=== PATIENT | female | born 1990 ===

== ENCOUNTER 2025-06-26 09:51 | Emergency (ER) | payer OTHER, SELFPAY ==
--- NOTE | ~2025-06-26 | XR_ITS ---
EXAMINATION: XR CHEST CLINICAL INFORMATION: chest pain COMPARISON: None available. TECHNIQUE: 2 views of the chest were obtained. FINDINGS: The cardiomediastinal silhouette is within normal limits. The lungs are well expanded. There is no focal consolidation, edema, or effusion. No pneumothorax. No acute osseous abnormality. XR/XR chest 2V IMPRESSION: No evidence of acute cardiopulmonary findings Electronically signed by: William Heredia MD 06/26/2025 11:24 AM [facility]
[2025-06-26 10:00] VITALS: BP 115/67; PULSE 86; RESP 18; TEMP 35.9; O2SAT 99; BMI 35.5
--- NOTE | 2025-06-26 10:01 | ED_ITS ---
HPI - General Adult General Chief complaint: General Medical Stated complaint: prolapsed organs, sent here from Time Seen by Provider: 06/26/25 10:10 Source: patient, RN notes reviewed and old records reviewed Mode of arrival: ambulatory Limitations: no limitations History of Present Illness ED Provider: Venecia garcia [facility] narrative: Patient is a 34-year-old female presenting to the emergency department with complaint of uterine prolapse for the past few days. States has history of the same, can usually correct herself at home. Referred to the ED from urgent care. Denies any vaginal bleeding or other abnormal discharge. Does report associated urinary incontinence which she states is typical for her with uterine prolapse. Denies dysuria or hematuria. Denies fevers. Reporting chest tightness for the past 2 weeks with lightheadedness as well. Denies cough, shortness of breath, palpitations. States that she recently moved here from [place]. She does not have care established with a cryogenics engineer here yet. She has been assigned a PCP by her insurance, but is unable to get an appointment until next year. complaint: uterine prolapse Related Data Allergies Allergy/AdvReac Type Severity Reaction Status Date / Time Fish Containing Products Allergy Hives Verified 06/26/25 10:01 shellfish derived (shellfish) Allergy Dizziness Verified 06/26/25 10:01 Review of Systems 2 Review of Systems: as per hpi Yes all other systems are reviewed and are negative Constitutional: Constitutional: Reports as per HPI [facility] Social History Social History Smoked in Last 30 Days: No Use of substances other than those prescribed or required for medical reasons: No Advance Directives: No Advance Directives Information Provided: No Physical Exam ED Vital Signs: Vital Signs - 24 hr 06/26/25 10:00 06/26/25 10:21 06/26/25 10:21 Temperature 96.6 F L Pulse Rate 86 79 Respiratory Rate 18 14 18 Blood Pressure 115/67 108/61 Pulse Oximetry 99 100 Oxygen Delivery Method Room Air Room Air BMI result Body Mass Index 35.5 Vital signs have been reviewed and appear to be correct. Blood pressure normal. Heart rate normal. Respiratory rate normal. Temperature normal. Oxygen saturation normal. Const General: cooperative, healthy appearing and no acute distress Orientation/consciousness: oriented to person, oriented to place, oriented to time and patient oriented x3 Limitations: no limitations HENMT Head: Yes normocephalic and Yes atraumatic Ears: external ears normal General nose exam: Normal external nose present Face and sinus: Yes face symmetric Mouth: oropharynx normal and moist mucous membranes Throat: Yes uvula midline Eyes Pupils: Equal, round and reactive pupils present Neck Neck: Yes normal visual inspection and Yes supple Resp Effort & Inspection: normal respiratory effort and able to speak in complete sentences Auscultation: clear to auscultation bilaterally Cardio Rate: regular rate Rhythm: regular rhythm Heart sounds: S1 normal heart sound present and S2 normal heart sound present GI Palpation (GI): Soft to palpation and nontender Auscultation: normoactive bowel sounds Other: pelvic exam chaperoned by ANDRÉS Dinh General: Yes no CVA tenderness Speculum Exam - Vagina: normal vaginal discharge Speculum Exam - Cervix: normal vervical discharge, nontender and Other cervical findings present (uterine prolapse into cervix but not extending to vagina/externally) Bimanual exam- vagina & uterus: No Cervical tenderness present Back/Spine/Pelvis Back: no CVA tenderness Skin General skin exam: elasticity normal and turgor normal Neuro General: oriented to person, oriented to place, oriented to time, patient oriented x3, moves all extremities, no focal motor deficits and CN's II-XI intact bilaterally Cranial nerves: Yes Equal, round and reactive pupils present Cognition (Neuro): normal cognition Extrem General: Yes full ROM, Yes no pedal edema and Yes no calf tenderness Psych Mental Status: mental status grossly normal Affect: normal affect Thought process: Normal thought process present Course Course Course Narrative: Rapid medical examination performed in triage by Tanya Hicks PA-C. Patient is a 34 year old assigned female at presenting to the emergency department with a bladder vs. uterine prolapse. Patient states that she tried to reduce it herself last night and was unsuccessful. Patient states that she is also dizzy with chest pain and had an EKG at urgent care that was OK but recommended she be checked out . Detailed physical exam and review of systems are deferred to the material planner. EKG + labs + imaging ordered. Patient placed back in the waiting room pending room availability and results. Medical Decision Making Medical Decision Making MDM Narrative: Patient is a 34-year-old female presenting to the emergency department with complaint of uterine prolapse for the past few days. On exam patient is awake, A+Ox3, VS WNL, afebrile, normal neurological exam without focal deficits, physical exam findings as above. Given reported symptoms and physical exam findings, initial differential includes but is not limited to uterine prolapse, UTI, viral illness, GERD/PUD, chest wall strain. Less likely ACS. EKG shows NSR with T wave inversion in leads avf, v1, v3. Labs unremarkable, negative troponin, normal BMP. X-ray chest notable for no evidence of pneumonia, pneumothorax. My interpretation is in agreement with the radiologist's interpretation. No external prolapse on physical exam. No evidence of infection on urinalysis. Feel patient is stable for discharge home at this time. Results discussed with patient and all questions answered. Will refer patient to photocomposing keyboard operator as well as Cardiology for further evaluation of her symptoms. Return precautions discussed. Patient verbalized understanding of and agreement with plan. Differential Diagnosis Differential Diagnoses: The differential diagnosis associated with the presentation includes as per [facility] Admission/Observation Consideration of admission/observation: Escalation of care including admission/observation considered Patient would have been admitted to the hospital and transferred to appropriate facility had their clinical presentation warranted hospital admission. Lab Data [facility] Lab Attestation statement: I reviewed the patient's lab results. as per [facility] 06/26/25 10:32 06/26/25 10:32 Labs: Lab Results 06/26/25 Range/Units 10:32 WBC 8.4 (4.8-10.8) X10*3/uL RBC 4.57 (4.20-5.50) X10*6/uL Hgb 13.2 (12.0-16.0) g/dl Hct 39.1 (37.0-47.0) % MCV 85.6 (80.0-98.0) fL MCH 28.9 (27.0-33.0) pg MCHC 33.8 (31.0-35.0) g/dl RDW 12.4 (11.0-16.0) % Plt Count 248 (160-400) X10*3/uL MPV 9.2 L (9.4-12.3) fL Immature Gran % (Auto) 0.2 (0.0-0.4) % Neut % (Auto) 69.7 (45-73) % Lymph % (Auto) 23.3 (20-40) % Harris % (Auto) 4.6 (2-11) % Eos % (Auto) 2.0 (0-4) % Baso % (Auto) 0.2 (0-2) % Lymph # (Auto) 2.0 (1.2-4.9) X10*3/uL Harris # (Auto) 0.4 (0.1-1.2) X10*3/uL Eos # (Auto) 0.2 (0.0-0.4) X10*3/uL Baso # (Auto) 0.0 (0.0-0.2) X10*3/uL Abs Immat Gran (auto) 0.02 (0.00-0.03) X10*3/uL Absolute Neuts (auto) 5.9 (2.0-8.3) x10*3/uL Absolute Nucleated RBC 0.000 (0.0-0.012) X10*3/uL Nucleated RBC % (auto) 0.0 (0.0-0.2) /100WBC Sodium 140 (135-145) mmol/L Potassium 3.6 (3.3-5.1) mmol/L Chloride 107 (96-108) mmol/L Carbon Dioxide 28 (22-29) mmol/L Anion Gap 9 L (12-20) BUN 9 (9-16) mg/dL Creatinine 0.65 (0.5-1.4) mg/dL Estim Creat Clear Calc 147.5 Estimated GFR > 60 Random Glucose 90 (60-115) mg/dL Calcium 8.9 (8.4-10.2) mg/dL Total Bilirubin 0.3 (0.0-1.0) mg/dL AST 19 (5-31) U/L ALT 16 (0-31) U/L Alkaline Phosphatase 63 (39-117) U/L Troponin I High Sens < 2.7 (<3.5-17.0) ng/L NT-Pro-B Natriuret Pep 64.3 (<300) pg/mL Total Protein 7.3 (6.5-8.0) g/dL Albumin 4.6 (3.5-5.0) g/dL Beta HCG, Quant < 2 mIU/mL Independent Interpretation I performed an independent interpretation of an: Plain X-Ray Interpretation: Chest x-ray is without evidence of pneumonia or pneumothorax. Radiology Impression Discussion of test interpretation with radiology: I have reviewed the radiologist's reading. Radiologist Impression: XR/XR chest 2V IMPRESSION: No evidence of acute cardiopulmonary findings External Record Review External record reviewed: Inpatient record, Office record and Outpatient record Discharge Plan Discharge Clinical Impression: Incomplete uterine prolapse, Atypical chest pain Patient Disposition: Home, Self-Care Instructions: Chest Pain (DC), Uterine Prolapse (ED) Additional Instructions: You were evaluated in the emergency department today for uterine prolapse. Your pelvic exam did not show evidence of external prolapse. Your urinalysis did not show evidence of infection. Your labs were reassuring. Your chest x-ray did not show evidence of pneumonia or other acute condition. You are being referred to an OBGYN as well as a slip mixer for further evaluation of your symptoms. You may need further work up such as ECHO, cardiac stress testing, coronary CT angiogram to assess your cardiac risk. Return to the emergency department with new or concerning symptoms. Please see list of OGBYN providers below if you do not have one: [facility] [address] [phone] [facility] [address] [facility] [address] [place] [address] [phone] O[facility]YN [facility] Midw[facility] [address] [phone] [facility] [phone] Referrals: [facility] [Provider Group] Referral Note: some T wave inversions on EKG Clinical Impression: Atypical chest pain Stand Alone Forms: Work/School Release Print Language: Haitian
--- NOTE | 2025-06-26 10:03 | ECG_ITS ---
Test Reason : CP Blood Pressure : */* mmHG Vent. Rate : 71 BPM Atrial Rate : 71 BPM P-R Int : 136 ms QRS Dur : 72 ms QT Int : 364 ms P-R-T Axes : 40 9 -4 degrees QTcB Int : 395 ms Normal sinus rhythm Nonspecific T wave abnormality Abnormal ECG No previous ECGs available Referred By: Tanya Hicks Electronically Signed By: Jorge Morrow
[2025-06-26 10:21] VITALS: BP 108/61; PULSE 79; RESP 14; RESP 18; O2SAT 100
[2025-06-26 10:36] LABS: MANUAL DIFF FLAG NO
[2025-06-26 10:37] LABS: Hematocrit 39.1 % (37.0-47.0); Hemoglobin 13.2 g/dl (12.0-16.0); Imm Gran Abs Auto 0.02 X10*3/uL (0.00-0.03); Imm Gran Pct Auto 0.2 % (0.0-0.4); Lymphocytes Absolute Auto 2.0 X10*3/uL (1.2-4.9); Mean Corpuscular HGB Conc 33.8 g/dl (31.0-35.0); Mean Corpuscular Hemoglobin 28.9 pg (27.0-33.0); Mean Corpuscular Volume 85.6 fL (80.0-98.0); NRBC Abs Auto 0.000 X10*3/uL (0.0-0.012); NRBC Pct Auto 0.0 /100WBC (0.0-0.2); Platelet Count 248 X10*3/uL (160-400); Red Blood Count 4.57 X10*6/uL (4.20-5.50); White Blood Count 8.4 X10*3/uL (4.8-10.8)
[2025-06-26 10:52] LABS: Alanine Aminotransferase 16 U/L (0-31); Albumin Level 4.6 g/dL (3.5-5.0); Alkaline Phosphatase 63 U/L (39-117); Anion Gap 9 (12-20); Aspartate Amino Transferase 19 U/L (5-31); Blood Urea Nitrogen 9 mg/dL (9-16); Calcium 8.9 mg/dL (8.4-10.2); Carbon Dioxide 28 mmol/L (22-29); Chloride 107 mmol/L (96-108); Creatinine Clr Calc Pharmacy 147.5; Estimated Glomerular Filt Rate > 60; Potassium 3.6 mmol/L (3.3-5.1); Sodium 140 mmol/L (135-145); Total Protein 7.3 g/dL (6.5-8.0)
[2025-06-26 10:59] LABS: NT Pro B Type Natriuretic Pept 64.3 pg/mL (<300)
[2025-06-26 11:04] LABS: Troponin-I High Sensitivity < 2.7 ng/L (<3.5-17.0)
--- NOTE | 2025-06-26 11:29 | PC.NURSE ---
This was triaged at 10am, brought into ED7, this RN was at bedside at 1030ish, tech doing EKG and placing on monitor at this time. This RN noted that EKG was ordered for CP at this time, this RN discussed with triaging RN/PA to determine if staff was made aware of EKG at that time. It was discovered that it was not verbalized that it was ordered as a CP EKG. This RN alerted WAREHOUSE ANALYST, labs sent and obtained at this time. Pt remains A'/Ox4, stable on RA. Pt is able to talk in full sentences at this time. Primary RN taking over for this RN is aware of situation at this time
[2025-06-26 12:06] LABS: Appearance Urine Clear; Glucose Urine UA Negative (Negative); PH 5.5 (5.0-9.0); Specific Gravity - Urine 1.020 (1.005-1.025); UMIC TRIGGER UACC YES
[2025-06-26 12:11] VITALS: BP 107/66; PULSE 74; RESP 13; TEMP 36.6; O2SAT 100
[2025-06-26 12:39] VITALS: BP 107/66; PULSE 74; RESP 13; TEMP 36.6; O2SAT 100
== END 2025-06-26 12:43 | disposition home or self-care (01) ==
PROVIDERS: Physician Assistant Medical; Registered Nurse Emergency; Emergency Provider Emergency Medicine
DX: N81.2 Incomplete uterovaginal prolapse (principal); R07.89 Other chest pain; R32 Unspecified urinary incontinence; Z79.899 Other long term (current) drug therapy
CPT/HCPCS: 36415; 71046; 80053; 81001; 81003; 83880; 84484; 84702; 85025; 93005; 99283; 99284

== ENCOUNTER → 2025-06-26 10:03 | Outpatient (BNV) | payer OTHER, SELFPAY | PROVIDERS: Emergency Provider Emergency Medicine; Visit Provider Internal Medicine Cardiovascular Disease | DX: R94.31 Abnormal electrocardiogram [ECG] [EKG] (principal); R07.9 Chest pain, unspecified | CPT/HCPCS: 93010 ==